=== PATIENT | male | born 1995 | race Hispanic/Latino ===

== ENCOUNTER 2020-11-20 11:27 | Emergency (ER) | payer BC ==
[~2020-11-20] VITALS: Ht 172.7 cm; Wt 104.3 kg
[2020-11-20] MEDS ORDERED: KETOROLAC TROMETHAMINE 60 MG/2 ML VIAL IM ONE (12:15)
== END 2020-11-20 15:04 | disposition home or self-care (01) ==
LOC: ER 11:50
DX: R07.89 Other chest pain (principal)
CPT/HCPCS: 71045; 93005; 99283; J1885